=== PATIENT | female | born 1975 | race Caucasian/White ===

== ENCOUNTER 2021-01-26 00:59 | Emergency (ER) | payer MEDICAID, OTHER | END 2021-01-26 01:37 | disposition E | LOC: CSHERS 00:59 | DX: I46.9 Cardiac arrest, cause unspecified (principal); U07.1 COVID-19; J44.9 Chronic obstructive pulmonary disease, unspecified; Z87.891 Personal history of nicotine dependence | CPT/HCPCS: 92950 ==